=== PATIENT | male | born 1960 | race Hispanic/Latino ===

== ENCOUNTER 2017-12-12 14:47 | Emergency (ER) | payer OTHER ==
[~2017-12-12] VITALS: Ht 170.2 cm; Wt 72.6 kg
[2017-12-12 15:35] LABS: ABSOLUTE BASOPHIL COUNT 0 /CUMM (0.0-0.2); ABSOLUTE EOSINOPHIL COUNT 0.2 /CUMM (0.0-0.7); ABSOLUTE GRANULOCYTE CT 4.9 /CUMM (1.4-6.5); ABSOLUTE LYMPH COUNT 1.9 /CUMM (1.2-3.4); ABSOLUTE MONOCYTE COUNT 0.4 /CUMM (0.10-0.60); BASOPHIL % 0.4 % (0.0-2.0); EOSINOPHIL % 2.5 % (0-5); GRANULOCYTE % 65.7 % (42.2-75.2); HEMATOCRIT 46.2 % (42-52); MEAN CORPUSCULAR HGB 28.8 PG (27.0-31.0); MEAN CORPUSCULAR VOLUME 87.4 FL (80.0-94.0); MEAN PLATELET VOLUME 7.3 FL (7.4-10.4); PLATELET COUNT 218 /CUMM (130-400); RBC DISTRIBUTION WIDTH 14.6 % (11.5-14.5); RED BLOOD CELL CT 5.29 /CUMM (4.70-6.10); WHITE BLOOD CELL COUNT 7.5 /CUMM (4.8-10.8)
[2017-12-12 15:41] LABS: PT 29.2 SEC (9.4-12.5); PTT 41 SEC (25-37)
[2017-12-12 16:24] VITALS: BP 146/75
--- NOTE | 2017-12-12 16:24 | CT SCAN REPORT ---
EXAMINATION: CT HEAD WITHOUT CONTRAST CLINICAL INFORMATION: Dizziness. Headache. COMPARISON: None TECHNIQUE: Contiguous axial imaging was performed from the skull base to vertex without intravenous administration of contrast. DLP: 615 mGy-cm FINDINGS: Brain parenchyma: Normal attenuation. Gonzalez-white matter differentiation is well preserved. No evidence of an acute major vascular territory infarction, hemorrhage, mass or midline shift. Cerebrospinal fluid spaces: Normal. No hydrocephalus or extra-axial fluid collections. Cerebellum and brainstem: Normal.. The 4th ventricle is midline in position. The cerebellopontine angles are normal. Calvarium and temporomandibular joints: Calvarium is intact. Mastoid air cells and middle ear cavities are well aerated. The TMJs are normal. Paranasal sinuses and orbits: The visualized paranasal sinuses are well aerated. Orbits and globes are unremarkable. Other: No acute findings in the visualized extracranial soft tissues. IMPRESSION: No acute intracranial pathology.
--- NOTE | 2017-12-12 16:52 | ED GENERAL ADULT ---
History of Present Illness General Chief Complaint: General Adult Stated Complaint: PT HAS MANY COMPLAINTS Source: patient Exam Limitations: no limitations Vital Signs & Intake/Output Vital Signs & Intake/Output Vital Signs Date Time Temp Pulse Resp B/P B/P Pulse O2 O2 Flow FiO2 Mean Ox Delivery Rate 12/12 1625 Room Air 12/12 1624 77 18 146/75 97 Room Air ED Intake and Output 12/13 0000 12/12 1200 Intake Total Output Total Balance Patient 160 lb Weight Allergies Coded Allergies: No Known Allergies (12/12/17) Reconcile Medications Clonazepam 0.25 MG TAB.RAPDIS 1 TAB PO QHS anxiety Paroxetine HCl (Paxil) 20 MG TABLET 1 TAB PO DAILY anxiety Triage Note: 56 YEAR OLD MALE AMBULATED TO TRIAGE WITH PORTABLE BP CUFF ON HIS R UPPER ARM, PT STATES THAT HE HAS PACE MAKER DEFIBRILATOR TO L SIDE CHEST , PT VERY ANXIOUS AND STATES THAT HE STARTED TO FEEL DIZZY , ABOUT 3 DAYS AGO, DIZZINESS IS WHEN HE WALKS AND WHEN HE IS SITTING HE FEELS JITTERY, STATES THAT HIS VISION IS BLURRY AT TIMES , AND SLIGHT NAUSEA. PT HAS HISTORY OF AFIB AND STATES THATS WHY HE HAS PACEMAKER. BP 168/81 AT TRIAGE, HR 100 Triage Nurses Notes Reviewed? yes Onset: Gradual Duration: day(s): Timing: recent history Severity: moderate HPI: 56y/o male with a history of afib, CHF, and anxiety presents to ED with complaint of dizziness which he attributes to hypertension and anxiety. The patients states that he has been trying to slowly taper his anxiety medication for the past week because he is afraid he is going to run out, but has not been able to sleep without the medication, and that this has been making the anxiety worse. Patient was previously on clonazepam 0.25mg and paroxetine 20mg, but has been trying to taper off these medications himself without success. Patient missed his psychiatry appointment in November and is going to run out of his medications soon, he would've run out of his medications already if he had not been reducing his doses. Patient states that last night he only got about 2-3 hours of sleep and that 2 nights ago he did take his medications and was able to sleep for more than 5 hours. Patient believes that his high blood pressure today and other symptoms are related to his anxiety. Patient is trying to make an appointment with a new psychiatrist as he does not trust his current psychiatrist, he did make an appointment with a psychologist scheduled for later this month. He denies suicidal ideation, homicidal ideation, drug use. (Hannah Monroe) Past History Travel History Traveled to [place] past 21 day No Medical History Any Pertinent Medical History? see below for history Neurological: NONE EENT: NONE Cardiovascular: AFIB, PACEMAKER Respiratory: NONE Gastrointestinal: NONE Hepatic: NONE Renal: NONE Musculoskeletal: NONE Psychiatric: NONE Endocrine: NONE Blood Disorders: NONE Cancer(s): NONE WEIGHT RECORDER/Reproductive: NONE Surgical History Surgical History: non-contributory Psychosocial History What is your primary language [place]orese Tobacco Use: Never used ETOH Use: denies use Illicit Drug Use: denies illicit drug use Family History Hx Contributory? No (Hannah Monroe) Review of Systems Review of Systems Constitutional: Reports: see HPI. EENTM: Reports: no symptoms. Respiratory: Reports: no symptoms. Cardiovascular: Reports: see HPI. GI: Reports: no symptoms. Genitourinary: Reports: no symptoms. Musculoskeletal: Reports: no symptoms. Skin: Reports: no symptoms. Neurological/Psychological: Reports: see HPI. Hematologic/Endocrine: Reports: no symptoms. Immunologic/Allergic: Reports: no symptoms. All Other Systems: Reviewed and Negative (Hannah Monroe) Physical Exam Physical Exam General Appearance: well developed/nourished, no apparent distress, alert, awake Head: atraumatic, normal appearance Eyes: Bilateral: normal appearance, PERRL, EOMI. Ears, Nose, Throat: hearing grossly normal Neck: normal inspection, supple, full range of motion Respiratory: normal breath sounds, no respiratory distress, lungs clear Cardiovascular: regular rate/rhythm Back: normal inspection, normal range of motion Extremities: normal inspection, normal range of motion Neurologic/Psych: no motor/sensory deficits, awake, alert, oriented x 3, normal gait Skin: intact, normal color, warm/dry Core Measures ACS in differential dx? No CVA/TIA Diagnosis: No Sepsis Present: No Sepsis Focused Exam Completed? No (Hannah Monroe) Progress Differential Diagnoses I considered the following diagnoses in my evaluation of the patient: [Anxiety, essential hypertension, vertigo, ICH, acute coronary syndrome, electrolyte abnormality] Plan of Care: Orders Procedure Date/time Status TSH REFLEX 12/12 1503 Complete TROPONIN LEVEL 12/12 1503 Complete PARTIAL THROMBOPLASTIN TIME 12/12 1503 Complete PROTHROMBIN TIME 12/12 1503 Complete MAGNESIUM 12/12 1503 Complete DIGOXIN 12/12 1503 Complete COMPREHENSIVE METABOLIC PANEL 12/12 1503 Complete CBC WITHOUT DIFFERENTIAL 12/12 150 Complete EKG 12/12 150 Active Laboratory Tests 12/12/17 1521: Anion Gap 12, Estimated GFR > 60, BUN/Creatinine Ratio 28.6 H, Glucose 123 H, Calcium 8.7, Magnesium 1.9, Total Bilirubin 1.0, AST 28, ALT 29, Alkaline Phosphatase 77, Troponin I < 0.01, Total Protein 7.6, Albumin 4.1, Globulin 3.5, Albumin/Globulin Ratio 1.2, TSH &T3 &Free T4 Intrp 3.130, PT 29.2 H, INR 2.65 H, APTT 41 H, CBC w Diff NO MAN DIFF REQ, RBC 5.29, MCV 87.4, MCH 28.8, MCHC 33.0, RDW 14.6 H, MPV 7.3 L, Gran % 65.7, Lymphocytes % 25.6, Monocytes % 5.8, Eosinophils % 2.5, Basophils % 0.4, Absolute Granulocytes 4.9, Absolute Lymphocytes 1.9, Absolute Monocytes 0.4, Absolute Eosinophils 0.2, Absolute Basophils 0, Digoxin 1.0 Patient's labs are stable, had CT imaging without acute abnormality. Patient is sitting in stretcher comfortably, no acute distress. He has been taking reduced doses of his anxiety medications because he is going to run out. He is likely experiencing symptoms related to medication withdrawal and increasing anxiety. I gave patient a short term refill of his psychiatric medications and instructed him to follow up with the psychologist as scheduled. I also gave him a referral to a new psychiatrist. The patient agrees with this plan. Diagnostic Imaging: Viewed by Me: CT Scan. Discussed w/RAD: CT Scan. Radiology Impression: PATIENT: FARHAD WOOD PRESENT AGE: 56 PATIENT ACCOUNT NO: [id number] : 56 LOCATION: [facility] ORDERING PHYSICIAN: Mario CAMPOS SERVICE DATE: 12/12/17-1502 EXAM TYPE: CAT - CT HEAD WO IV CONTRAST EXAMINATION: CT HEAD WITHOUT CONTRAST CLINICAL INFORMATION: Dizziness. Headache. COMPARISON: None TECHNIQUE: Contiguous axial imaging was performed from the skull base to vertex without intravenous administration of contrast. DLP: 615 mGy-cm FINDINGS: Brain parenchyma: Normal attenuation. Gonzalez- white matter differentiation is well preserved. No evidence of an acute major vascular territory infarction, hemorrhage, mass or midline shift. Cerebrospinal fluid spaces: Normal. No hydrocephalus or extra-axial fluid collections. Cerebellum and brainstem: Normal.. The 4th ventricle is midline in position. The cerebellopontine angles are normal. Calvarium and temporomandibular joints: Calvarium is intact. Mastoid air cells and middle ear cavities are well aerated. The TMJs are normal. Paranasal sinuses and orbits: The visualized paranasal sinuses are well aerated. Orbits and globes are unremarkable. Other: No acute findings in the visualized extracranial soft tissues. IMPRESSION: No acute intracranial pathology. DICTATED BY: Babak Pavon MD DATE/TIME DICTATED:12/12 INFORMATION TECHNOLOGY AUDITOR:BERNA DATE/TIME TRANSCRIBED:12/12/171615 CONFIDENTIAL, DO NOT COPY WITHOUT APPROPRIATE AUTHORIZATION. <Electronically signed in Other Vendor System> SIGNED BY: Babak Pavon MD 12/12/17 7559 Initial ED EKG: paced rhythm @77bpm, nonspecific ST changes (Ellie CAMPOS,Hannah Shipley) Departure Departure Disposition: HOME OR SELF CARE Condition: Stable Clinical Impression Primary Impression: Anxiety Secondary Impressions: Dizziness Referrals: Unknown (PCP/Family) Additional Instructions: Take paroxetine and clonazepam as prescribed for anxiety. Follow-up with psychiatrist and psychologist as discussed. Return with worsening symptoms or concerns. Please note that there might be incidental findings in your evaluation that are unrelated to the current emergency department visit. Please notify your primary care doctor about this emergency department visit in order to obtain and review all of the testing performed so that these incidental findings can be monitored as needed. If you had an x-ray performed, please understand that some fractures may not be seen on the initial set of x-rays. If your symptoms persist you might need a repeat set of x-rays to check for such a fracture. If you had a laceration evaluated, please understand that foreign bodies such as glass or wood may not be visible to the naked eye or on plain x-rays. If the wound becomes red, swollen, increasingly more painful or if there is any drainage from the wound, please have it reevaluated by a physician for the possibility of a retained foreign body. If you're unable to follow up as outlined in the discharge instructions please return to the emergency department. Thank you for choosing the [facility] Emergency Department for your care. It was a pleasure to serve you today. Departure Forms: Customer Survey General Discharge Information Prescriptions: Current Visit Scripts Paroxetine HCl (Paxil) 1 TAB PO DAILY #20 TAB Clonazepam 1 TAB PO QHS #12 TAB (Hannah Monroe) PA/TRAFFIC INCIDENT MANAGEMENT MANAGER Co-Sign Statement Statement: ED Attending supervision documentation- I saw and evaluated the patient. I have also reviewed all the pertinent lab results and diagnostic results. I agree with the findings and the plan of care as documented in the PA's/TRAFFIC INCIDENT MANAGEMENT MANAGER's documentation. x I have reviewed the ED Record and agree with the PA's/TRAFFIC INCIDENT MANAGEMENT MANAGER's documentation. [] Additions or exceptions (if any) to the PAs/TRAFFIC INCIDENT MANAGEMENT MANAGER's note and plan are summarized below: [] (Cedrick DE LA CRUZ,Omar) Critical Care Note Critical Care Note Critical Care Time: non-applicable (Hannah Monroe)
[2017-12-12] MEDS ORDERED: CLONAZEPAM0.25 M1 PO (17:15)
[2017-12-12] MEDS ORDERED: PAXIL20 M1 PO (17:15)
== END 2017-12-12 17:49 ==
LOC: ERH 14:47
PROVIDERS: Physician Assistant Medical
DX: F41.9 Anxiety disorder, unspecified (principal); R42 Dizziness and giddiness
CPT/HCPCS: 93005; 93010